=== PATIENT | female | born 1955 | race Caucasian/White ===

== ENCOUNTER 2016-11-21 07:52 | Day surgery (SDC) | payer OTHER ==
[~2016-11-21] VITALS: Ht 160 cm; Wt 67.1 kg
[~2016-11-21 07:52] MED LIST: 0.9% Sodium Chloride 1,000 ML IV SCH; ASPI-973 PO; ATOR20TA PO; CARV12.5 PO; CARV6.25 PO; RANI150C4 PO; Sodium Chloride LOK Flush 10 mL Syringe IV PRN; fentaNYL-PF 50 mCg/mL 2 mL Inj IVPUSH PRN
[2016-11-21 08:17] VITALS: BP 164/96; PULSE 80; RESP 14; O2SAT 98
[2016-11-21] MEDS ORDERED: MELO-253 PO (08:19)
[2016-11-21 09:00] VITALS: BP 158/79; PULSE 82; RESP 16; O2SAT 96
[2016-11-21 09:10] VITALS: BP 128/74; PULSE 84; RESP 16; O2SAT 95
--- NOTE | 2016-11-21 09:13 | ENDO ---
[address] [address] ENDOSCOPY PROCEDURE PATIENT: SLY MAYER : 1955 MR#: [id number] ADMIT: 11/21/2016 JOB ID: [id number] DATE: 11/21/2016 PRIMARY PROVIDER: Marques Pimentel M.D. PROCEDURE: Flexible sigmoidoscopy (failed colonoscopy). INDICATIONS: A 61-year-old female who reports for colon cancer screening. EQUIPMENT: PCF H 180 AL. SEDATION: 1. 6 mg Versed. 2. 150 mcg fentanyl. COMPLICATIONS: None identified. BOWEL PREPARATION: Fair. PROCEDURAL INFORMATION: After the risks and benefits were explained, written and verbal informed consent was obtained. The patient was brought into the endoscopy suite and placed into the left lateral decubitus position. Sedation was achieved as above. A digital rectal examination accomplished. Mild internal hemorrhoids noted. No other pathology appreciated. The scope was introduced into the rectum and advanced to the level of about 30 cm from the anal verge. The patient had an incredibly tortuous diverticula riddled sigmoid and I did not feel it was safe to continue to push beyond looping that we could not control in the pelvis. The scope was withdrawn slowly to carefully examine the distal mucosa for any defects or lesions. The colon was decompressed. The scope removed the patient who tolerated the procedure well. FINDINGS: The patient had extensive diverticulosis in the sigmoid. I did not appreciate any significant polyps, mass lesions or inflammatory features from the rectum through to about 30 cm. This was an incredibly tortuous navigation and the bowel did not feel as though it was accepting of any further pressure to advance the scope beyond the loops that were already created in the pelvis. For safety I elected to abort any further attempt at cecal navigation. ENDOSCOPIC DIAGNOSES: 1. Diverticulosis. 2. Hemorrhoids. 3. Failed navigation. RECOMMENDATIONS: The patient will be offered salvage virtual colonography to complete the colon cancer screening experience today. Ideally this will be performed this afternoon or at the latest tomorrow morning.
[2016-11-21 09:20] VITALS: BP 141/73; PULSE 82; RESP 16; O2SAT 98
== END 2016-11-21 23:59 | disposition home or self-care (01) ==
LOC: END 07:52
PROVIDERS: ATTEND Internal Medicine Gastroenterology
DX: Z12.11 Encounter for screening for malignant neoplasm of colon (principal); K57.30 Diverticulosis of large intestine without perforation or abscess without bleeding; K64.8 Other hemorrhoids; J44.9 Chronic obstructive pulmonary disease, unspecified; I10 Essential (primary) hypertension; E78.00 Pure hypercholesterolemia, unspecified; K21.9 Gastro-esophageal reflux disease without esophagitis; F41.9 Anxiety disorder, unspecified; F17.210 Nicotine dependence, cigarettes, uncomplicated; Z79.82 Long term (current) use of aspirin
CPT/HCPCS: G0104; G0500; J2250; J3010; J7030

== ENCOUNTER 2016-12-06 09:14 | Emergency (ER) | payer OTHER ==
[~2016-12-06] VITALS: Ht 160 cm; Wt 66.0 kg
[~2016-12-06 09:14] MED LIST changes: -0.9% Sodium Chloride 1,000 ML IV SCH; +MELO-253 PO; -Sodium Chloride LOK Flush 10 mL Syringe IV PRN; -fentaNYL-PF 50 mCg/mL 2 mL Inj IVPUSH PRN
--- NOTE | 2016-12-06 09:20 | ED.REPORT ---
HPI-General Illness Date of Service Dec 06, 2016 ED Provider: Vaibhav Leavitt DO Patient is a 61 year old female with a hx of HTN, hyperlipidemia, and COPD who presents to the ED s/p a syncopal episode this morning. She broke into a cold sweat while up and about then sat down and lost consciousness for about 10-15 minutes. She did not hit her head. Associated symptoms include a dull ache in her L shoulder, mild headache, nausea, and she reports her L leg "doesn't work as well as my right leg." She denies chest pain, SOB, vomiting, focal weakness, numbness, or any other symptoms. She has not been ill recently. She was recently put on new blood pressure medications. She has not taken all of her daily medications since yesterday morning. Nursing Notes Stated Complaint: LOW BP,SWEATING,PASSED OUT,HR IRREGULAR Nursing Notes Reviewed: Yes Allergies: Coded Allergies: codeine (Verified Allergy, Mild, Hives, 03/23/09) prochlorperazine (Verified Allergy, Mild, Anaphylaxis, 03/23/09) TONGUE SWELLING Scheduled Aspirin (Aspirin) 81 Mg Tablet 81 MG PO DAILY Atorvastatin (Lipitor) 20 Mg Tablet 20 MG PO DAILY Carvedilol (Coreg) 6.25 Mg Tablet 6.25 MG PO DIRECTED Carvedilol (Coreg) 12.5 Mg Tablet 12.5 MG PO DIRECTED Meloxicam (Meloxicam) 15 Mg Tablet 15 MG PO DAILY Ranitidine (Ranitidine) 150 Mg Capsule 150 MG PO DAILY General Time Seen by MD: 09:18 Chief Complaint Other (Syncope ) Hx Obtained From: Patient Arrived By: Walk-in Sudden in Onset?: Yes Onset Occurred: 5 - 8 hours ago Symptom Duration: 1 - 15 minutes Similar Sx Previous: No Past Medical History Past Medical History Notes: Dr. Gallegos - cardiology Past Medical History HTN COPD Hyperlipidemia Unspecific arrhythmia Past Surgical History T&A R shoulder surgery Reports: Hysterectomy Family History Multiple family members from [place] Smoking History Current Every Day Smoker Social History 7 drinks a week Alcohol Use: 1-3 per day Other Social History: Good social support, Ambulatory Status Independent Review of Systems Full Review of Systems Respiratory: Denies: Shortness of breath Cardiovascular: Denies: Chest pain GI: Reports: Nausea, Denies: Vomiting Musculoskeletal: Reports: Joint pain Neurologic: Reports: Headache, Syncope, Denies: Numbness, Weakness Complete sys rev & neg: except as marked. Physical Exam Vital Signs Vital Signs Date Time Temp Pulse Resp B/P Pulse Ox O2 Delivery O2 Flow Rate FiO2 12/06/16 10:40 81 18 118/72 97 Room Air 12/06/16 09:38 85 15 146/71 100 Room Air 12/06/16 09:21 92 14 193/95 99 Room Air Initial VS: Reviewed Head / Eyes: Atraumatic, Normocephalic Neck: Full range of motion Abdomen / GI: Soft, Non-tender Skin: Warm, Dry Psychiatric: Mood/affect normal, Behavior normal, Normal thought content General/Constitutional: Awake, Alert, No acute distress Hypertensive Respiratory / Chest: Breath sounds NL, Breath sounds = bilat, No respiratory distress Cardiovascular: Heart rate NL, Regular rhythm, Heart sounds NL Neurologic: Oriented X3, Speech NL sensation and strength intact and equal in all 4 extremities bilaterally no facial droop Answers questions appropriately No focal deficits Interpretation & Diagnostics Lab Results Interpretation Result Diagram: 12/06/16 0925 12/06/16 0925 Test 12/06/16 09:25 White Blood Count 11.0th/mm3 (3.8-10.1) Red Blood Count 4.54mil/mm3 (3.90-5.20) Hemoglobin 14.4g/dL (12.0-15.6) Hematocrit 42.1% (35.0-46.0) Mean Corpuscular Volume 92.7fL (81-100) Mean Corpuscular Hemoglobin 31.7pg (27.0-35.0) Mean Corpuscular Hemoglobin Concent 34.2% (32.0-37.0) Red Cell Distribution Width 12.7% (12.3-15.4) Platelet Count 248bil/L (150-400) Neutrophils (%) (Auto) 74.1% (40-74) Lymphocytes (%) (Auto) 18.8% (14-46) Monocytes (%) (Auto) 4.9% (4-12) Eosinophils (%) (Auto) 1.6% (0-5) Basophils (%) (Auto) 0.3% (0-3) D-Dimer 0.51mg/L FEU (<0.50) Sodium Level 130mEq/L (134-144) Potassium Level 4.4mEq/L (3.5-5.2) Chloride Level 90mEq/L (97-108) Carbon Dioxide Level 23mmol/L (18-29) Blood Urea Nitrogen 13mg/dL (8-27) Creatinine 0.55mg/dL (0.57-1.00) Estimat Glomerular Filtration Rate 160mL/min (>59) Glucose Level 107mg/dL (60-99) Calcium Level 9.8mg/dL (8.5-10.1) Magnesium Level 1.9mg/dL (1.6-2.6) Total Bilirubin 0.3mg/dL (0.0-1.2) Aspartate Amino Transf (AST/SGOT) 23U/L (0-50) Alanine Aminotransferase (ALT/SGPT) 15U/L (0-32) Alkaline Phosphatase 114U/L (25-165) Troponin T 0.010ug/L (0.0-0.011) Total Protein 7.9g/dL (6.4-8.4) Albumin 4.6g/dL (3.4-5.0) Hold Bourne Top Tube Received (Received) ECG Interpretation ECG Interpretation: Sinus rate 84 otherwise normal Time: 09:27 Interpreted by: ED physician X-Ray Chest Interpretation Chest Xray Interpretation: IMPRESSION: No acute process. Dictated by: Tonny Steward M.D. on 12/06/2016 at 9:52 Approved by: Tonny Steward M.D. on 12/06/2016 at 9:52 View: Portable, 1 view Interpretation / Wet Read by: Interpret - Radiologist Re-Eval/Medical Decision Med Decision/Clinical Course Syncopal episode. Sounded mostly orthostatic related to changing positions. Workup in the ER is significant for hyponatremia likely related to chlorthalidone treatment which is new. Discussed with the patient's air pollution specialist who agrees with discharge, discontinuing chlorthalidone, and beginning losartan. Return and follow-up precautions given Time of Eval: 10:38 Re-Evaluation/Progress Note: Rechecked pt who is feeling better. Discussed plan for discharge. Patient understands and agrees with plan. All questions addressed at this time. Consultation : Referral / Consult Name: Danika Gallegos MD Consulted With: Cardiology Call Returned at: 10:32 Note: Discussed patient's case. Pt is allergic to amlodipine. She had a recent 30 day cardiac monitoring that was normal. Start trial of losartan 25 mg daily. Called in by Dr. Gallegos and pt already has a follow up appointment. Counseled Regarding: Diagnosis, Lab results, Need for follow-up, When/why to return to ED Discharge & Departure Primary Impression: Episode of syncope Syncope type: unspecified Qualified Code: R55 - Syncope and collapse Additional Impression: Hyponatremia Disposition: Home Discharge Condition All VS Reviewed: Yes Condition: Improved Patient Instructions: Syncope (ED) Additional Instructions: Stop chlorthalidone. Begin losartan. Follow-up with your air pollution specialist as planned. Return to the ER if you develop recurrent syncope, severe chest pain, or other concerns. Referrals: Marques Pimentel MD (PCP) Scribe Attestation Portions of this note were transcribed by Ligia Salcedo. I, Dr. Leavitt personally performed the history, physical exam and medical decision-making; I reviewed and confirmed the accuracy of the information in the transcribed note. Signed by: Ligia Salcedo 12/06/16, 1114 copies to: Marques Pimentel MD, Timothy S DO Dec 06, 2016 09:20 LIGIA SALCEDO Dec 06, 2016 09:31
[2016-12-06 09:21] VITALS: BP 193/95; PULSE 92; RESP 14; O2SAT 99
[2016-12-06 09:38] VITALS: BP 146/71; PULSE 85; RESP 15; O2SAT 100
[2016-12-06 09:39] LABS: BASOPHILS % (AUTO) 0.3 % (0-3); EOSINOPHILS % (AUTO) 1.6 % (0-5); MONOCYTES % (AUTO) 4.9 % (4-12); Mean Corpuscular Hemoglobin 31.7 pg (27.0-35.0); Mean Corpuscular Volume 92.7 fL (81-100); NEUTROPHILS % (AUTO) 74.1 % (40-74); Platelet Count 248 bil/L (150-400)
--- NOTE | 2016-12-06 09:55 | DRSVH ---
PROCEDURE: X-RAY CHEST ONE VIEW, PORTABLE ([id number]) INDICATIONS: CHEST PAIN TECHNIQUE: One view of the chest was acquired. COMPARISON: [facility], , CHEST 1VW (PORTABLE), 03/09/2011, 14:03. FINDINGS: Surgical changes and devices: None. Lungs and pleura: No pleural effusions or pneumothorax. Lungs are clear. Mediastinum: Mediastinal contours appear normal. Heart size is normal. Bones and chest wall: No suspicious bony lesions. Overlying soft tissues appear unremarkable. IMPRESSION: No acute process. Dictated by: Tonny Steward M.D. on 12/06/2016 at 9:52 Approved by: Tonny Steward M.D. on 12/06/2016 at 9:52
[2016-12-06 10:08] LABS: TROPONIN T 0.01 ug/L (0.0-0.011)
[2016-12-06 10:19] LABS: Magnesium 1.9 mg/dL (1.6-2.6)
[2016-12-06 10:40] VITALS: BP 118/72; PULSE 81; RESP 18; O2SAT 97
[2016-12-06 11:18] VITALS: BP 120/61; PULSE 81; RESP 15; O2SAT 95
== END 2016-12-06 11:10 | disposition home or self-care (01) ==
LOC: SED 09:14
DX: R55 Syncope and collapse (principal); R11.0 Nausea; R51 Headache; M25.512 Pain in left shoulder; I10 Essential (primary) hypertension; E87.1 Hypo-osmolality and hyponatremia; E78.5 Hyperlipidemia, unspecified; J44.9 Chronic obstructive pulmonary disease, unspecified; F17.200 Nicotine dependence, unspecified, uncomplicated; Z88.5 Allergy status to narcotic agent; Z79.82 Long term (current) use of aspirin